=== PATIENT | male | born 1960 ===

== ENCOUNTER 2016-12-26 20:25 | Emergency (ER) | payer SELFPAY ==
[2016-12-26 20:39] VITALS: BP 139/72; PULSE 88; RESP 18; TEMP 97; O2SAT 99
--- NOTE | 2016-12-26 21:05 | ED PDOC ---
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 He reports that today while changing the windows in his apartment , there was construction on the street below, and he felt something fly into his right eye. Patient does not wear contact lenses or glasses. Now patient is with pain, FB sensation and redness of the right eye. He denies headache or dizziness. PMD: None Past Medical History Reviewed: Historical Data, Nursing Documentation, Vital Signs Vital Signs: Last Vital Signs Temp 97 F L 12/26/16 20:36 Pulse 88 12/26/16 20:36 Resp 18 12/26/16 20:36 BP 139/72 12/26/16 20:36 Pulse Ox 99 12/26/16 20:36 - Medical History PMH: No Chronic Diseases - Surgical History Surgical History: No Surg Hx - Family History Family History: States: No Known Family Hx - Living Arrangements Living Arrangements: With Family - Social History Current smoker - smoking cessation education provided: No Alcohol: None Drugs: Denies - Immunization History Hx Tetanus Toxoid Vaccination: Yes - Home Medications Home Medications: Ambulatory Orders Medication Instructions Recorded Ciprofloxacin [Cipro] 500 mg PO ONCE #14 tab 07/31/14 Tobramycin [Tobrex] 5 ml TOP QID #1 bottle 12/26/16 - Allergies Allergies/Adverse Reactions: Allergies Allergy/AdvReac Type Severity Reaction Status Date / Time No Known Allergies Allergy Verified 07/31/14 16:46 Review of Systems ROS Statement: Except As Marked, All Systems Reviewed And Found Negative Eyes: Positive for: Pain (right eye), Redness (right eye), Other (FB sensation to right eye) Neurological: Negative for: Headache, Dizziness Physical Exam - Reviewed Nursing Documentation Reviewed: Yes Vital Signs Reviewed: Yes - Physical Exam Appears: Positive for: Well, Non-toxic, No Acute Distress Head Exam: Positive for: ATRAUMATIC, NORMAL INSPECTION, NORMOCEPHALIC Skin: Positive for: Normal Color, Warm, Dry Eye Exam: Positive for: Conjunctival injection (diffusely to right eye). Negative for: Periorbital swelling, Periorbital tenderness, Other (Visualized foreign body under right upper eyelid) ENT: Positive for: Normal ENT Inspection Neurologic/Psych: Positive for: Alert, Oriented - ECG O2 Sat by Pulse Oximetry: 99 (RA) Pulse Ox Interpretation: Normal Medical Decision Making Medical Decision Making: Clinical Impression: Right eye FB Time: 21:00 Procedure Note: 2 gtts tetracaine applied to right eye followed by stain with flouroscein strip, abrasion noted at 3:00, FB noted under upper eyelid, removed easily with cotton swab tip. After removal, no further FB noted. Patient tolerated procedure well, no complications. Patient felt immediately better after removal of foreign body. Prescription was given for tobramycin ophthalmic eyedrops. Patient was referred to ophthalmology on-call for follow-up. Scribe Attestation: Documented by Debby Obrien, acting as a scribe for Lily Reyes PA-C Provider Scribe Attestation: All medical record entries made by the Scribe were at my direction and personally dictated by me. I have reviewed the chart and agree that the record accurately reflects my personal performance of the history, physical exam, medical decision making, and the department course for this patient. I have also personally directed, reviewed, and agree with the discharge instructions and disposition. Disposition - Clinical Impression Clinical Impression: Foreign body in eye, Corneal abrasion - Patient ED Disposition Is Patient to be Admitted: No Counseled Patient/Family Regarding: Diagnosis, Need For Followup, Rx Given - Disposition Referrals: Carson Tovar MD [Staff Provider] - Disposition: Routine/Home Disposition Time: 21:36 Condition: IMPROVED Additional Instructions: Apply drops as directed. [id number] Tylenol or Motrin for pain. Follow-up with fire fighting equipment specialist for any persistent symptoms. Prescriptions: Tobramycin [Tobrex] 5 ml TOP QID #1 bottle Instructions: Eye Foreign Body (ED), Corneal Abrasion (ED) Forms: [employer] (Macedonian) Print Language: CYMRO
== END 2016-12-26 21:47 | disposition home or self-care (01) ==
LOC: H.ER 20:25
DX: T15.01XA Foreign body in cornea, right eye, initial encounter (principal)